=== PATIENT | male | born 1970 | race Caucasian/White ===

== ENCOUNTER 2017-12-06 14:10 | Emergency (ER) | payer SELFPAY ==
[~2017-12-06] VITALS: Ht 188 cm; Wt 77.2 kg
[2017-12-06] MEDS ORDERED: KETOROLAC 30 MG/1 ML IM ONE (15:30)
[2017-12-06] MEDS ORDERED: KETOROLAC 30 MG/1 ML ONE (15:32)
[2017-12-06 15:50] LABS: BASOPHILS # (AUTO) 0.08 x10^3/uL (0-0.1); BASOPHILS % (AUTO) 1 % (0-1); EOSINOPHILS # (AUTO) 0.08 x10^3/uL (0-0.4); EOSINOPHILS % (AUTO) 1 % (1-7); LYMPHOCYTES % (AUTO) 28 % (22-44); MD NO; MEAN CORPUSCULAR HEMOGLOBIN 31.8 pg (27.5-34.5); MEAN CORPUSCULAR HGB CONC 34.5 g/dL (33.2-36.2); MEAN CORPUSCULAR VOLUME 92.3 fL (81-97); MONOCYTES # (AUTO) 0.38 x10^3/uL (0.2-0.8); MONOCYTES % (AUTO) 6 % (2-9); NEUTROPHILS # (AUTO) 3.91 x10^3/uL (1.8-6.8); NEUTROPHILS % (AUTO) 64 % (42-75); PLATELET COUNT 289 x10^3/uL (130-400); RED BLOOD COUNT 5.47 x10^6/uL (4.38-5.82); RED CELL DISTRIBUTION WIDTH 12.8 % (9.4-14.8)
[2017-12-06 15:56] LABS: ALBUMIN 3.9 g/dL (3.4-5.0); ANION GAP 8 mmol/L (5-15); CALCIUM 9.1 mg/dL (8.5-10.1); CHLORIDE 104 mmol/L (98-107)
[2017-12-06 16:00] LABS: ALANINE AMINOTRANSFERASE 40 U/L (12-78); ALKALINE PHOSPHATASE 73 U/L (45-117); BILIRUBIN,TOTAL 0.4 mg/dL (0.2-1.0); CREATININE 0.92 mg/dL (0.7-1.3); TOTAL PROTEIN 7.8 g/dL (6.4-8.2)
[2017-12-06 17:41] LABS: MICROSCOPIC INDICATED
[2017-12-06 17:58] LABS: CULTURE INDICATED? NO
[2017-12-06 18:02] VITALS: BP 136/83
[2017-12-06] MEDS ORDERED: HYDROcodone/APAP 5/325 TABLET ONE (18:16)
[2017-12-06] MEDS ORDERED: HYDROcodone/APAP 5/325 TABLET PO ONE (18:30)
== END 2017-12-06 18:55 | disposition home or self-care (01) ==
LOC: ED 15:32
DX: M54.42 Lumbago with sciatica, left side (principal)
CPT/HCPCS: 36415; 72110; 80053; 81001; 85025; 96372; 99285; J1885; J7512